=== PATIENT | female | born 1935 ===

== ENCOUNTER 2020-01-28 10:39 | Inpatient (IN) | payer MEDICARE, OTHER, SELFPAY ==
[2020-01-28] VITALS (18 sets, daily range): BP systolic 83–118; BP diastolic 58–72; PULSE 60–87; RESP 13–22; TEMP 36.2–36.8; O2SAT 93–100; BMI 25.6
--- NOTE | 2020-01-28 10:45 | XR_ITS ---
WS: [id number] PORTABLE CHEST HISTORY: hypotension COMPARISON: 04/02/2019 Benign granulomata RIGHT lower lung field. No pneumonia. Normal vasculature. No pleural effusion or p neumothorax. Cardiac size: Normal. Mediastinum/Aorta: Mild atherosclerosis aorta. No osseous abnormality seen. XR/XR chest 1V portable [id number] IMPRESSION: Atherosclerosis aorta and prior granulomatous disease. No acute cardiopulmonary disease.
--- NOTE | 2020-01-28 10:45 | CT_ITS ---
WS: [id number] CT HEAD NONCONTRAST HISTORY: ams TECHNIQUE: Contiguous axial imaging performed through the brain in 2.5 mm imaging. Bone and soft tiss ue windows. Sagittal and coronal reformats reviewed. All CT scans at [facility] use at ast one of these dose optimization techniques: automated exposure control; mA and/or kV adjustment pe r patient size (includes targeted exams where dose is matched to clinical indication); or iterative r econstruction. DLP: 902.85 mGy.cm COMPARISON: 09/17/2015 No acute intracranial hemorrhage, midline shift or mass effect. Moderate atrophy and chronic ischemic disease. Small lacunar infarcts in the basal ganglia. Distribut ion is similar to the prior study. There is cerebellar atrophy. Ventricles: Ventricles and extra-axial spaces are prominent on the basis of atrophy. No inferior displacement of the cerebellar tonsils. Paranasal sinuses: As visualized are clear. Mastoid air cells: Well pneumatized. Calvarium and scalp: Skull is intact with no soft tissue edema or swelling. Advanced atherosclerosis of the intracranial carotid arteries. CT/CT head wo con* [id number] IMPRESSION: 1. No acute intracranial hemorrhage or edema. 2. Cerebral and cerebellar atrophy and chronic ischemic disease stable since 11/20/2014.
--- NOTE | 2020-01-28 10:46 | ECG_ITS ---
Measurements Intervals [place] Rate: 69 P: 40 TN: 149 QRS: -7 QRSD: 90 T: 59 QT: 385 QTc: 414 SINUS RHYTHM Compared to ECG 04/02/2019 15:30:49 Sinus bradycardia no longer present Electronically Signed On 01-28-2020 15:28:51 CDT by Leigh Reynolds M.D. [email or web address]
--- NOTE | 2020-01-28 10:47 | ED_ITS ---
HPI - Weakness General: Chief complaint: Altered Mental Status Stated complaint: ALOC/ HYPOTENSION Time Seen by Provider: 01/28/20 10:44 Source: EMS Mode of arrival: EMS Limitations: altered mental status History of Present Illness: HPI Narrative: 84-year-old female who is here from correction due to increasing altered mental status and a syncopal event today. Patient is currently bedbound and has not been speaking for 2 weeks per EMS and correction. Patient is unable to give any history here. She is on blood pressure medicines at correction but has had hypotension over the last week to 2 weeks. Patient is hypotensive here. She had no fever. Review of Systems General: Reports: ROS unobtainable due to mental status PFSH ED PFSH: Social History Smoking and tobacco status: unknown if ever smoked Physical Exam Const: COMMON NORMALS: no apparent distress and healthy appearing EXAM LIMITATIONS: altered mental status GENERAL APPEARANCE: frail appearing HENMT: COMMON NORMALS: normocephalic and head/scalp atraumatic HEAD & SCALP: normocephalic and atraumatic Eye: COMMON NORMALS: PERRL and EOMs intact bilaterally PUPIL: Yes PERRL Neck/C-Spine: COMMON NORMALS: full ROM and supple Chest: COMMONS NORMALS: inspection of chest normal and palpation of chest normal Resp: COMMON NORMALS: normal respiratory effort, no retractions, no use of accessory muscles and clear to auscultation bilaterally AUSCULTATION: clear to auscultation bilaterally Cardio: COMMON NORMALS: regular rate, regular rhythm and no murmurs RATE: regular rate RHYTHM: regular rhythm GI: COMMON NORMALS: normal to inspection, nondistended, normoactive bowel sounds, soft to palpation, non-tender and no masses PALPATION: Yes soft Extremity: COMMON NORMALS: normal to inspection and full ROM Neuro: OTHER: Patient does not respond to any questions. She does not speak. She is awake. Psych: COMMON NORMALS: negative for mental status grossly normal Skin: COMMON NORMALS: no rashes or lesions noted and no wounds GENERAL SKIN EXAM: no rashes or lesions noted Course Vital Signs: Vital signs: Vital Signs Temperature 97.5 F L 01/28/20 10:40 Pulse Rate 87 01/28/20 12:42 Respiratory Rate 16 01/28/20 12:42 Blood Pressure 107/68 01/28/20 12:42 Pulse Oximetry 97 01/28/20 12:42 MDM - Weakness MDM Narrative: Medical decision making narrative: Patient presents here with altered mental status from correction. Patient appears quite dehydrated with acute kidney injury from dehydration. She also has hyperkalemia I believe is due to her acute kidney injury from dehydration. Her blood pressure here is g reatly improved after IV fluids. Patient does have a cystitis and started on antibiotics. I spoke to hospitalist along with nephrology and will admit to the ICU. Patient given insulin here for her hyperkalemia. Lab Data: Labs: Lab Results 01/28/20 01/28/20 01/28/20 Range/Units 12:00 12:00 12:00 WBC 11.2 H (4.0-10.0) 10^3/ uL RBC 4.02 L (4.1-5.3) 10^6/u L Hgb 11.9 (11.5-15.3) g/dL Hct 39.9 (37.0-47.0) % MCV 99.3 H (81-99) fL MCH 29.6 (28.0-34.0) pg MCHC 29.8 L (30.0-36.0) g/dL RDW 14.3 (12.1-15.1) % Plt Count 161 (130-400) 10^3/c mm MPV 13.0 H (7.4-10.4) fL Neut % (Auto) 83.0 % Lymph % (Auto) 11.5 % [place] % (Auto) 4.6 % Eos % (Auto) 0.1 % Baso % (Auto) 0.3 % Neut # (Auto) 9.3 H (1.8-7.7) 10^3/u L Lymph # (Auto) 1.3 (0.8-4.8) 10^3/u L [place] # (Auto) 0.5 (0.2-0.9) 10^3/u L Eos # (Auto) 0.0 (0.0-0.8) 10^3/u L Baso # (Auto) 0.0 (0.0-0.1) 10^3/u L Nucleated RBC % (a uto) 0 % Nucleated RBCs # 0.0 /100WBC Sodium 148 H (136-145) mmol/L Potassium 6.6 H* (3.5-5.1) mmol/L Chloride 116 H (98-107) mmol/L Carbon Dioxide 18 L (22-29) mmol/L Anion Gap 20.6 H (5-19) BUN 113 H* (8-23) mg/dL Creatinine 5.2 H (0.5-0.9) mg/dL Glucose 114 (65-115) mg/dL Calculated Osmolal ity 309 H (285-295) mOsm/k g Lactate 1.7 (0.5-2.2) mmol/L Calcium 9.3 (8.5-10.5) mg/dL Magnesium (1.7-2.3) mg/dL Total Bilirubin 0.5 (0.15-1.2) mg/dL AST 15 (0-32) U/L ALT 16 (0-33) U/L Alkaline Phosphata se 97 (35-105) IU/L Troponin T Baselin e (0-10) ng/mL Total Protein 7.3 (6.6-8.7) g/dL Albumin 3.5 (3.5-5.2) g/dL Globulin 3.8 (1.3-4.6) g/dL Urine Color (Yellow) Urine Appearance (CLEAR) Urine pH (5-7) Ur Specific Gravit y (1.005-1.030) Urine Protein (Negative) Urine Glucose (UA) (Normal) Urine Ketones (Negative) Urine Blood (Negative) Urine Nitrate (Negative) Urine Bilirubin (NEGATIVE) Prot Sulfosalicyli c Acd (Negative) Urine Urobilinogen (Negative) mg/dL Ur Leukocyte Haven ase (Negative) Urine RBC (0-2) /hpf Urine WBC (0-5) /hpf Ur Squamous Epith Cells (0-5) Urine Bacteria (NONE) 01/28/20 01/28/20 01/28/20 Range/Units 12:00 12:00 12:08 WBC (4.0-10.0) 10^3/ uL RBC (4.1-5.3) 10^6/u L Hgb (11.5-15.3) g/dL Hct (37.0-47.0) % MCV (81-99) fL MCH (28.0-34.0) pg MCHC (30.0-36.0) g/dL RDW (12.1-15.1) % Plt Count (130-400) 10^3/c mm MPV (7.4-10.4) fL Neut % (Auto) % Lymph % (Auto) % Sew[place] % (Auto) % Eos % (Auto) % Baso % (Auto) % Neut # (Auto) (1.8-7.7) 10^3/u L Lymph # (Auto) (0.8-4.8) 10^3/u L [place] # (Auto) (0.2-0.9) 10^3/u L Eos # (Auto) (0.0-0.8) 10^3/u L Baso # (Auto) (0.0-0.1) 10^3/u L Nucleated RBC % (a uto) % Nucleated RBCs # /100WBC Sodium (136-145) mmol/L Potassium (3.5-5.1) mmol/L Chloride (98-107) mmol/L Carbon Dioxide (22-29) mmol/L Anion Gap (5-19) BUN (8-23) mg/dL Creatinine (0.5-0.9) mg/dL Glucose (65-115) mg/dL Calculated Osmolal ity (285-295) mOsm/k g Lactate (0.5-2.2) mmol/L Calcium (8.5-10.5) mg/dL Magnesium 2.7 H (1.7-2.3) mg/dL Total Bilirubin (0.15-1.2) mg/dL AST (0-32) U/L ALT (0-33) U/L Alkaline Phosphata se (35-105) IU/L Troponin T Baselin e 212 H* (0-10) ng/mL Total Protein (6.6-8.7) g/dL Albumin (3.5-5.2) g/dL Globulin (1.3-4.6) g/dL Urine Color Yellow (Yellow) Urine Appearance Turbid (CLEAR) Urine pH 8 H (5-7) Ur Specific Gravit y 1.010 (1.005-1.030) Urine Protein 3+ H (Negative) Urine Glucose (UA) Norm (Normal) Urine Ketones 1+ H (Negative) Urine Blood 3+ H (Negative) Urine Nitrate Negative (Negative) Urine Bilirubin Neg (NEGATIVE) Prot Sulfosalicyli c Acd Positive (Negative) Urine Urobilinogen Norm (Negative) mg/dL Ur Leukocyte Haven ase 2+ H (Negative) Urine RBC 5-10 H (0-2) /hpf Urine WBC Too numerous to c nt H (0-5) /hpf Ur Squamous Epith Cells 0-4 H (0-5) Urine Bacteria 4+ H (NONE) Imaging Data^: CT Head: Attestation: I personally reviewed and interpreted this imaging study as follows: Radiologist's impression: [address] [place] [address] CT Scan Report Signed Patient: Blanca Waddell Unit #: [id number] : [id number] Age/Sex: 84 / F ADM Date: 01/28/20 Loc: ER Room/Bed: Attending Dr: Ordering Provider/Ordering MD: Jamison Quan MD Date of Service: 01/28/20 Procedure(s): CT head wo con* [id number] Accession Number(s): [id number] Report Number: [id number] WS: [id number] CT HEAD NONCONTRAST HISTORY: ams TECHNIQUE: Contiguous axial imaging performed through the brain in 2.5 mm imaging. Bone and soft tissue windows. Sagittal and coronal reformats reviewed. All CT scans at [facility] use at least one of these dose optimization techniques: automated exposure control; mA and/or kV adjustment per patient size (includes targeted exams where dose is matched to clinical indication); or iterative reconstruction. DLP: 902.85 mGy.cm COMPARISON: 09/17/2015 No acute intracranial hemorrhage, midline shift or mass effect. Moderate atrophy and chronic ischemic disease. Small lacunar infarcts in the basal ganglia. Distribution is similar to the prior study. There is cerebellar atrophy. Ventricles: Ventricles and extra-axial spaces are prominent on the basis of atrophy. No inferior displacement of the cerebellar tonsils. Paranasal sinuses: As visualized are clear. Mastoid air cells: Well pneumatized. Calvarium and scalp: Skull is intact with no soft tissue edema or swelling. Advanced atherosclerosis of the intracranial carotid arteries. CT/CT head wo con* [id number] IMPRESSION: 1. No acute intracranial hemorrhage or edema. 2. Cerebral and cerebellar atrophy and chronic ischemic disease stable since 09/19/2015. CXR: Radiologist's impression: [facility] [address] [place] [address] XRay Report Signed Patient: Blanca Waddell Unit #: [id number] : 1935 Age/Sex: 84 / F ADM Date: 01/28/20 Loc: ER Room/Bed: Attending Dr: Ordering Provider/Ordering MD: Jamison Quan MD Date of Service: 01/28/20 Procedure(s): XR chest 1V portable [id number] Accession Number(s): [id number] Report Number: [id number] WS: [id number] PORTABLE CHEST HISTORY: hypotension COMPARISON: 04/02/2019 Benign granulomata RIGHT lower lung field. No pneumonia. Normal vasculature. No pleural effusion or pneumothorax. Cardiac size: Normal. Mediastinum/Aorta: Mild atherosclerosis aorta. No osseous abnormality seen. XR/XR chest 1V portable [id number] IMPRESSION: Atherosclerosis aorta and prior granulomatous disease. No acute cardiopulmonary disease. EKG Data^: EKG 1: Attestation: I personally reviewed and interpreted this EKG as follows: EKG interpretation date: 01/28/20 EKG interpretation time: 11:01 Interpretation: nsr hr [address] abnormalities, peaked t waves, qrs 90 qtc 404 Critical Care Time Critical Care Time: Critical Care Time: Yes Total Critical Care Time: 36 Attestation: This case had a high probability of a clinically significant, sudden, or life threatening deterioration of this patient's condition which required my full and direct attention, intervention and personal management. Discharge Plan Discharge Patient Disposition: Admitted As Inpatient Admit Provider: Serafin Rapp Clinical Impression: Acute kidney injury, Acute hyperkalemia Altered mental status Qualifiers: Altered mental status type: unspecified Qualified Code(s): R41.82 - Altered mental status, unspecified Acute cystitis Qualifiers: Hematuria presence: without hematuria Qualified Code(s): N30.00 - Acute cystitis without hematuria Condition: Stable Coding Level of Care Code ED Senior Ui Ux Designer for Chg Fwd Exam Comprehensive
[2020-01-28] MEDS: sodium chloride 0.9% 1,000 ML 999 ML IV ×2 (11:10→12:11)
[2020-01-28 12:28] LABS: Bilirubin Urine Neg (NEGATIVE); Blood Urine 3+ (Negative); Glucose Urine UA Norm (Normal); Ketones Urine 1+ (Negative); Nitrate Urine Negative (Negative); Protein Urine 3+ (Negative); Sulfosalicylic Acid Urine Positive (Negative); Urine Appearance Turbid (CLEAR); Urine Color Yellow (Yellow); pH Urine 8 (5-7)
[2020-01-28 12:29] LABS: Add Urine Culture? Yes; Add Urine Microscopic? YES; Bacteria Urine 4+; Leukocyte Esterase Urine 2+ (Negative); Squamous Epithelial Cell Urine 0-4 (0-5); Urobilinogen Urine Norm (Negative); WBC Urine TOO NUMEROUS TO CNT /hpf (0-5)
[2020-01-28 12:32] LABS: Basophils % 0.3 %; Eosinophils % 0.1 %; Hematocrit 39.9 % (37.0-47.0); Hemoglobin 11.9 g/dL (11.5-15.3); Lymphocytes # 1.3 10^3/uL (0.8-4.8); Lymphocytes % 11.5 %; Mean Corpuscular HGB Conc 29.8 g/dL (30.0-36.0); Mean Corpuscular Hemoglobin 29.6 pg (28.0-34.0); Mean Corpuscular Volume 99.3 fL (81-99); Monocytes # 0.5 10^3/uL (0.2-0.9); Monocytes % 4.6 %; Neutrophils # 9.3 10^3/uL (1.8-7.7); Nucleated Red Blood Cells % 0 %; Platelet Count 161 10^3/cmm (130-400); Red Blood Count 4.02 10^6/uL (4.1-5.3); Red Cell Distribution Width 14.3 % (12.1-15.1); White Blood Count 11.2 10^3/uL (4.0-10.0)
[2020-01-28 12:51] LABS: Lactate (Lactic Acid level) 1.7 mmol/L (0.5-2.2)
[2020-01-28] MEDS: cefTRIAXone 1,000 MG in sodium chloride 0.9% (plus) 50 ML 100 MG IV (12:51)
[2020-01-28 12:52] LABS: Alanine Aminotransferase 16 U/L (0-33); Albumin Level 3.5 g/dL (3.5-5.2); Alkaline Phosphatase 97 IU/L (35-105); Anion Gap 20.6 (5-19); Aspartate Amino Transferase 15 U/L (0-32); Calcium 9.3 mg/dL (8.5-10.5); Carbon Dioxide 18 mmol/L (22-29); Chloride 116 mmol/L (98-107); Globulin 3.8 g/dL (1.3-4.6); Glucose 114 mg/dL (65-115); Sodium 148 mmol/L (136-145); Total Bilirubin 0.5 mg/dL (0.15-1.2); Total Protein 7.3 g/dL (6.6-8.7)
[2020-01-28 13:15] LABS: Blood Urea Nitrogen 113 mg/dL (8-23); Osmolality Calculated 309 mOsm/kg (285-295); Potassium 6.6 mmol/L (3.5-5.1)
[2020-01-28 13:16] LABS: Troponin(5th) Baseline 212 ng/mL (0-10)
[2020-01-28] MEDS: dextrose 50% syringe 50 mL IVP (13:32)
[2020-01-28] MEDS: insulin regular-human 100 units/1 mL 10 UNIT IVP (13:33)
[2020-01-28 13:41] LABS: Magnesium 2.7 mg/dL (1.7-2.3)
[2020-01-28 15:03] LABS: Troponin 5 2HR 188.5 ng/mL (0-10); Troponin 5 2HR Delta -23.5 ABS# (0-10)
--- NOTE | 2020-01-28 15:31 | PM.HP ---
Providers/Chief Complaint Admitting Physician: Serafin Rapp Primary Care Provider: South Arizmendi MD Chief Complaint: SHAJI,HYPERKALEMIA History of Present Illness Blanca Waddell is a 84 year old lady, correction resident due to functional decline and inability of her and her daughter to take care of her at home, with history of CAD, CKD, HTN, recurrent UTI, dementia, recently with worsening functional capacity was brought to ER for evaluation after recent very significant decline in oral intake, participation in activities and social interaction, and recently with worsening generalized weakness, and a noted syncopal event today. In ER she is noted hypotensive, with urinary tract infection, severe acute kidney injury with hyperkalemia: Noted dehydrated, with generalized weakness. During my evaluation she is very weak, although is alert, and answering some basic questions. She is not sure where she is stating that she thinks she may be in [place]. She states the year as 2001. She denies any pain. She is fatigued and generally weak. She denies any chest pain or pressure. She is not short of breath. She cannot give more of a review of systems or history. I have also spoken with the correction staff and her family. It appears that recently after losing her [id number]-gcl she had quite significantly deteriorated in terms of her functional capacity. Worse previously she used to walk around and would feed herself, would recognize her family, recently she has become withdrawn, not eating or drinking unless through significant encouragement, and even then only small amounts, and has been interacting less, and appears possibly not able to recognize her family. I was only able to speak with her daughter and son-in-law, although her is reportedly making decisions on her behalf. His son in law is getting out to the farm to try to get him so we can discuss her condition and treatment plan as well as goals of care. Daughter and son-in-law are unaware that CODE STATUS recently has been changed to no resuscitation at correction. They are very concerned about continuing her medications, although after a lengthy discussion do understand that in her current hypotensive state a number of her cardiac medications need to be held. On her 's return he confirms that at SNF code status was changed to DNR in case of cardiopulmonary arrest. He states they did not realize how much she has recently declined. He prefers this code status to continue here. Review of Systems General: Reports: other (Recent functional decline, poor appetite, poor intake of food and drink. Generalized weakness. She herself is weak, but denies pain. Denies shortness of breath. Denies chest pain or pressure. Denies nausea or abdominal discomfort. States she is not hungry. Cannot give more all review of systems than that.) Medications/Allergies Home Medications Medication Instructions Recorded Confirmed Last Taken Type aspirin 81 mg tablet,delayed 81 mg PO DAILY 01/21/20 01/28/20 01/28/20 08:00 History release diclofenac sodium 75 mg 75 mg PO BID 01/21/20 01/28/20 01/28/20 08:00 History tablet,delayed release donepezil 5 mg tablet 5 mg PO BID tab 01/21/20 01/28/20 01/28/20 08:00 History lisinopril 10 mg tablet 10 mg PO BEDTIME tab 01/21/20 01/28/20 Unknown History methenamine hippurate 1 gram tablet 1 gm PO BID 01/21/20 01/28/20 01/28/20 08:00 History misoprostol 200 mcg tablet 200 mcg PO BID tab 01/21/20 01/28/20 01/28/20 History nifedipine 30 mg tablet,extended 30 mg PO DAILY 01/21/20 01/28/20 Unknown History release omeprazole 20 mg capsule,delayed 20 mg PO QAM 01/21/20 01/28/20 Unknown History release simvastatin 40 mg tablet 40 mg PO BEDTIME 01/21/20 01/28/20 Unknown History citalopram 20 mg tablet 20 mg PO DAILY #60 tab 01/25/20 01/28/20 01/28/20 08:00 Rx isosorbide mononitrate 30 mg 30 mg PO BID #60 tab 01/25/20 01/28/20 01/28/20 08:00 Rx tablet,extended release 24 hr nitrofurantoin monohyd/m-cryst 100 mg PO DAILY 01/28/20 01/28/20 01/28/20 08:00 History [Macrobid] sod.chlorid-potassium chloride 1 tab PO TID 01/28/20 01/28/20 01/28/20 08:00 History [Thermotabs] Allergies Allergy/AdvReac Type Severity Reaction Status Date / Time Sulfa (Sulfonamide Allergy Unknown Verified 01/26/20 15:39 Antibiotics) PFSH Acute PFSH: Medical History Anemia Blindness of left eye CAD (coronary artery disease) Cystitis Dementia GERD (gastroesophageal reflux disease) HTN (hypertension) Hyperlipidemia Thoracic aortic aneurysm Surgical History H/O section History of bladder surgery History of cataract surgery Family History (Updated 01/28/20 @ 17:06 by Serafin Rapp MD) Father Stroke Alzheimer's disease Social History Smoking and tobacco status: never smoked Alcohol intake: never Substance/Drug Use: never Marital status: Current occupational status: retired Vitals/I&O/Wt Last Vital Signs Temp 97.1 F L 01/28/20 15:00 Pulse 63 01/28/20 15:00 Resp 18 01/28/20 15:00 BP 98/58 01/28/20 15:00 Pulse Ox 94 01/28/20 14:31 01/28/20 01/28/20 01/28/20 06:59 14:59 22:59 Intake Total 2109 Balance 2109 Weight last 48 hrs Weight 72.03 kg Physical Exam Const: COMMON NORMALS: no apparent distress; negative for oriented x3 GENERAL APPEARANCE: frail appearing OTHER: Very weak HENMT: COMMON NORMALS: oropharynx normal Neck/C-Spine: COMMON NORMALS: no JVD Resp: COMMON NORMALS: normal respiratory effort and clear to auscultation bilaterally AUSCULTATION: clear to auscultation bilaterally Cardio: COMMON NORMALS: no JVD, regular rhythm, S1 normal heart sound, S2 normal heart sound and no murmurs RHYTHM: regular rhythm HEART SOUNDS: S1 normal and S2 normal GI: COMMON NORMALS: normal to inspection, nondistended, normoactive bowel sounds, soft to palpation and non-tender PALPATION: Yes soft Extremity: COMMON NORMALS: no joint enlargement and no pedal edema Neuro: COMMON NORMALS: oriented x3 and moves all extremities Skin: COMMON NORMALS: no rashes or lesions noted GENERAL SKIN EXAM: no rashes or lesions noted Urinary Catheter Management^: Lamb: Cath Placed During This Visit: yes Reason for Continuing Indwelling Catheter: Accurate Measurement of Urinary Output in Critically Ill Patients Urinary Catheter Date of Insertion: 01/28/20 Urinary Catheter Time of Insertion: 12:41 Data : 01/28/20 12:00 01/28/20 12:00 Micro: Microbiology 01/28/20 14:09 Blood Culture - Preliminary Blood SPECIMEN COLLECTED 01/28/20 12:00 Blood Culture - Preliminary Blood SPECIMEN COLLECTED A&P Assessment and plan (1) Acute kidney injury: Creatinine up to 5.2, baseline is around 1.3-1.5. SHAJI superimposed on chronic kidney disease. Complicated by hyperkalemia, potassium 6.6, with peaked T waves. Fluid challenge. Reassess response, urine output. Treat hyperkalemia. Check CK. Renal ultrasound. Hold her blood pressure medications. Maintain mean arterial pressure. Discontinue NSAIDs. Appreciate nephrology input. Status: Acute (2) Acute hyperkalemia: Received calcium gluconate, dextrose and insulin. Kayexalate. Appreciate nephrology recommendations. Recheck level. Discussed with family that in some cases in case of worsening renal function, hyperkalemia, hemodialysis may be considered, although this would not be ideal choice first due to concurrent hypotension, and also due to her overall functional status and quality of life. Timing of dialysis if it were needed would be difficult to predict, temporary versus more long-term. Day confirmed understanding, will take some time to discuss to help decide in case this were required. Status: Acute (3) Hypotension: This is suspected hypovolemic, in combination with antihypertensives and cardiac medications. Cannot entirely exclude septic shock, although does not fit sepsis criteria. Had some response to volume challenge. Repeating bolus 500 mL 0.45 saline. Repeat again if needed. Please discuss any changes in condition with family. In case of change in goals of care to end-of-life, they would like to come see her in the hospital. Status: Acute (4) Acute cystitis: Complicated urinary tract infection, with history of very resistant infections. Received Rocephin in ER. I see back in August had E. coli resistant to cephalosporins as well as other antibiotics. We will switch antibiotic to Primaxin instead at this time. Follow urine culture. Monitor blood pressure. He does not strictly fit sepsis criteria as she is afebrile, without tachycardia or other signs of sepsis. Her hypotension may be secondary to hypovolemia, although cannot entirely exclude septic shock. Lactic acid is 1.7. Blood culture had been ordered. Status: Acute Qualifiers: Hematuria presence: without hematuria Qualified Code(s): N30.00 - Acute cystitis without hematuria (5) Altered mental status: Recently progressive dementia, decline in motivation, functional capacity. Decline in overall nutrition and hydration. She has been significantly less active not participating in activities over the last weeks, less communicative. It appears has had progression of dementia after the of [id number]-gol. Discussed with family overall her prognosis while guarded at this time, long-term he is rather not good given chronic comorbidities with CAD, CKD, among others, as well as recent progression of dementia and decline in functional capacity. They verbalized understanding and agreement. Status: Acute Qualifiers: Altered mental status type: unspecified Qualified Code(s): R41.82 - Altered mental status, unspecified (6) Dementia: Recently progressing. Status: Acute (7) CAD (coronary artery disease): With chronically occluded RCA reported per family. Follows with Dr. Navarro in [place]. Continue aspirin, statin. Family understand that with hypotension medications which are affecting her blood pressure may likely worsen her condition. Are agreeable to hold them. Status: Acute (8) Syncope due to orthostatic hypotension: Status: Acute (9) Troponin level elevated: She denies current chest pain. Does have history of coronary disease with chronic occlusion of RCA per family, although with some collaterals. Given she is asymptomatic, without significant changes on EKG, troponin ovation is suspected likely secondary to mismatch and demand supply secondary to acute infection, hypotension and kidney injury. Continue to monitor for symptoms. Complete troponin and EKG trend. Continue her cardiac medications with aspirin, statin. Status: Acute Attestations Medical Necessity Statement*: Admission of over 2 midnights is going to be needed for assessment and management of acute kidney injury, hyperkalemia, urinary tract infection, hypovolemia and hypotension in the setting of coronary disease chronic kidney disease and dementia. Critical Care Time: In addition to noncritical issues 25 minutes critical care time spent on assessment of hemodynamic status, hypotension, severe acute kidney injury, hyperkalemia with EKG changes, complicated urinary tract infection with history of resistant infections, hypotension, hypovolemia, troponin abnormality in the setting of chronic kidney disease and coronary disease. Coding Level of Care Code Acute [employer]ominium [employer] Manager for g Fwd Diagnoses Acute kidney injury N17.9 Acute hyperkalemia E87.5 Hypotension I95.9 Acute cystitis N30.00 Hematuria presence: without hematuria Altered mental status R41.82 Altered mental status type: unspecified Dementia F03.90 CAD (coronary artery disease) I25.10 Syncope due to orthostatic hypotension I95.1 Troponin level elevated R79.89
[2020-01-28] MEDS: sodium chloride 0.9% 1,000 ML 100 ML IV (16:06)
[2020-01-28] MEDS: sodium polystyrene sulfonate 15 gm/60 mL Btl PO (16:08)
--- NOTE | 2020-01-28 16:46 | ECG_ITS ---
Measurements Intervals [place] Rate: 65 P: 59 SC: 162 QRS: 2 QRSD: 93 T: 62 QT: 414 QTc: 432 SINUS RHYTHM LOW QRS VOLTAGE IN PRECORDIAL LEADS [QRS DEFLECTION < 1.0 mV IN CHEST LEADS] Compared to ECG 04/02/2019 15:30:49 Low QRS voltage now present Sinus bradycardia no longer present Electronically Signed On 01-28-2020 15:45:59 CDT by Leigh Reynolds M.D. [email or web address]
--- NOTE | 2020-01-28 16:47 | P.CONIM_ITS ---
Providers/Reason For Consult Consulting Physican/Specialty*: Nephrology Reason for Consult*: Acute kidney failure and hyperkalemia Attending Physician: Serafin Rapp Primary Care Provider: [place] MD History of Present Illness History of Present Illness Blanca Waddell is a 84 year old female brought in from [place] with increasing AMS, poor oral intake. She was found to have turbid urine, with pyuria, bactiuria, with SHAJI on labs with a creatinine of 5.2 and K of 6.6. Some subtle EKG changes and she received the hyperK cocktail in the ER with 2L of NS. UO is starting to filler picker. Lamb cath was placed. No known history of SHAJI and old labs show baseline creatinine of 1.5mg./dL in March of last year. On her med chart I see NSAIDs (Diclofenac) and Lisinopril. It also appears that she is being treated with MAcrobid for a UTI. She is minimally verbal at this time. There are no apparent fevers/chills/ SOB/ cough etc. She has no edema and no other features of hypervolemia. Her Bp was initially low when she came in with a sBp in the 80s, improving to 100-110 after ivf boluses. Review of Systems Const: Reports: change in appetite Eyes: Denies: change in vision or blurry vision ENMT: Denies: throat pain Card: Denies: chest pain, palpitations or shortness of breath on exertion Resp: Denies: shortness of breath or productive cough GI: Reports: other (unable to answer ) Meds/Allergies Home Medications and Allergies Home Medications Medication Instructions Recorded Confirmed Last Taken Type aspirin 81 mg tablet,delayed 81 mg PO DAILY 01/21/20 01/28/20 01/28/20 08:00 History release diclofenac sodium 75 mg 75 mg PO BID 01/21/20 01/28/20 01/28/20 08:00 History tablet,delayed release donepezil 5 mg tablet 5 mg PO BID tab 01/21/20 01/28/20 01/28/20 08:00 History lisinopril 10 mg tablet 10 mg PO BEDTIME tab 01/21/20 01/28/20 Unknown History methenamine hippurate 1 gram tablet 1 gm PO BID 01/21/20 01/28/20 01/28/20 08:00 History misoprostol 200 mcg tablet 200 mcg PO BID tab 01/21/20 01/28/20 01/28/20 History nifedipine 30 mg tablet,extended 30 mg PO DAILY 01/21/20 01/28/20 Unknown History release omeprazole 20 mg capsule,delayed 20 mg PO QAM 01/21/20 01/28/20 Unknown History release simvastatin 40 mg tablet 40 mg PO BEDTIME 01/21/20 01/28/20 Unknown History citalopram 20 mg tablet 20 mg PO DAILY #60 tab 01/25/20 01/28/20 01/28/20 08:00 Rx isosorbide mononitrate 30 mg 30 mg PO BID #60 tab 01/25/20 01/28/20 01/28/20 08:00 Rx tablet,extended release 24 hr nitrofurantoin monohyd/m-cryst 100 mg PO DAILY 01/28/20 01/28/20 01/28/20 08:00 History [Macrobid] sod.chlorid-potassium chloride 1 tab PO TID 01/28/20 01/28/20 01/28/20 08:00 History [Thermotabs] Allergies Allergy/AdvReac Type Severity Reaction Status Date / Time Sulfa (Sulfonamide Allergy Unknown Verified 01/26/20 15:39 Antibiotics) Current Medications Current Medications Generic Name Dose Route Start Last Admin Trade Name Freq PRN Reason Stop Dose Admin Sodium Chloride 1,000 mls @ 100 mls/hr 01/28/20 16:00 01/28/20 16:06 Sodium Chloride 0.9% IV 100 mls/hr .Q10H JOSEMANUEL Administration PFSH Acute PFSH: Social History Smoking and tobacco status: unknown if ever smoked Vitals/I&O/Wt Last Vital Signs Temp 97.1 F L 01/28/20 15:00 Pulse 63 01/28/20 15:00 Resp 18 01/28/20 15:00 BP 98/58 01/28/20 15:00 Pulse Ox 94 01/28/20 14:31 01/28/20 01/28/20 01/28/20 06:59 14:59 22:59 Intake Total 2109 / 2109 Balance 2109 Weight last 48 hrs Weight 72.03 kg Physical Exam Const: EXAM LIMITATIONS: altered mental status NUTRITIONAL APPEARANCE: underweight ORIENTATION/CONSCIOUSNESS: Yes confused HENMT: COMMON NORMALS: normocephalic HEAD & SCALP: normocephalic Eye: COMMON NORMALS: PERRL and EOMs intact bilaterally PUPIL: Yes PERRL Neck/C-Spine: COMMON NORMALS: no JVD Lymph: LYMPHATIC: no lymphadenopathy noted and no lymphedema noted Chest: COMMONS NORMALS: inspection of chest normal and palpation of chest normal Resp: COMMON NORMALS: normal respiratory effort and no retractions Cardio: COMMON NORMALS: no JVD, regular rate, regular rhythm, S1 normal heart sound and S2 normal heart sound RATE: regular rate RHYTHM: regular rhythm HEART SOUNDS: S1 normal and S2 normal GI: COMMON NORMALS: normal to inspection, nondistended, normoactive bowel sounds Neuro: PEDRO COMA SCALE: other (very confused, unable to converse ) COMMON NORMALS: no focal motor deficits Urinary Catheter Management^: Lamb: Cath Placed During This Visit: yes Reason for Continuing Indwelling Catheter: Accurate Measurement of Urinary Output in Critically Ill Patients Urinary Catheter Date of Insertion: 01/28/20 Urinary Catheter Time of Insertion: 12:41 Data Micro: Micro: Microbiology 01/28/20 14:09 Blood Culture - Pr eliminary Blood SPECIMEN [facility] 01/28/20 12:00 Blood Culture - Pr eliminary Blood SPECIMEN [facility] A&P Additional A&P Information 1. SHAJI - consistent with severe pre-renal azotemia, characterized by clinical hypovolemia, high BUN:creatinine ratio. It is possible ATN has occurred given her profound intravascular volume depletion. Furthermore, she has been exposed to both NSAIDs restricting glomerular inflow and ACEi, dumping glomerular pressure further. - stat repeat BMP - will continue NS at 100ml/hr - will get urine studies for FE Na and FE urea - CPK, TSH - of K continues to increase then dialysis will become a real consideration - avoid the usuals - dose meds for eGFR < 15 2. Confusion - likely metabolic encephalopathy from severe volume depletion and UTI 3. UTI - urine and blood cultures; on Imipenem and has received Rocephin - thanks will follow closely - interview and exam performed via telemed with the aid of the bedside RN Yasir Collins MD [facility] [phone] Consult Attestations Medical Necessity Statement: eval for SHAJI and hyperK Coding Level of Care Code Acute Kiln Car Unloader for Chg Fwd
[2020-01-28 17:48] LABS: Anion Gap 19.5 (5-19); Calcium 8.9 mg/dL (8.5-10.5); Carbon Dioxide 13 mmol/L (22-29); Chloride 118 mmol/L (98-107); Creatine Phosphokinase 95 U/L (26-192); Glucose 91 mg/dL (65-115); Osmolality Calculated 301 mOsm/kg (285-295); Potassium 5.5 mmol/L (3.5-5.1); Sodium 145 mmol/L (136-145)
[2020-01-28 18:33] LABS: Blood Urea Nitrogen 100 mg/dL (8-23)
[2020-01-28] MEDS: heparin 5,000 unit/mL INJ 1 mL 5000 UNIT SUBCUT (18:49)
[2020-01-28] MEDS: atorvastatin 40 mg Tablet 20 MG PO (22:01)
[2020-01-29] VITALS (10 sets, daily range): BP systolic 94–152; BP diastolic 58–91; PULSE 65–72; RESP 13–19; TEMP 36.2–37.2; O2SAT 94–99; BMI 24.1
[2020-01-29 02:49] LABS: Urine Random Sodium 53 mmol/L
[2020-01-29 03:06] LABS: Urea Nitrogen,Urine Random 580 mg/dL
[2020-01-29] MEDS: heparin 5,000 unit/mL INJ 1 mL 5000 UNIT SUBCUT ×3 (03:56→16:08)
[2020-01-29] MEDS: sodium chloride 0.9% 1,000 ML 100 ML IV (03:56)
[2020-01-29 05:24] LABS: Basophils % 0.4 %; Eosinophils # 0.2 10^3/uL (0.0-0.8); Eosinophils % 2.6 %; Hematocrit 35.2 % (37.0-47.0); Hemoglobin 10.1 g/dL (11.5-15.3); Lymphocytes # 1.2 10^3/uL (0.8-4.8); Lymphocytes % 14.3 %; Mean Corpuscular HGB Conc 28.7 g/dL (30.0-36.0); Mean Corpuscular Hemoglobin 29.1 pg (28.0-34.0); Mean Corpuscular Volume 101.4 fL (81-99); Mean Platelet Volume 12.9 fL (7.4-10.4); Monocytes # 0.4 10^3/uL (0.2-0.9); Monocytes % 4.9 %; Neutrophils # 6.6 10^3/uL (1.8-7.7); Neutrophils % 77.3 %; Nucleated Red Blood Cells % 0 %; Platelet Count 128 10^3/cmm (130-400); Red Blood Count 3.47 10^6/uL (4.1-5.3); Red Cell Distribution Width 14.2 % (12.1-15.1); White Blood Count 8.5 10^3/uL (4.0-10.0)
[2020-01-29 05:48] LABS: Alanine Aminotransferase 14 U/L (0-33); Albumin Level 2.9 g/dL (3.5-5.2); Alkaline Phosphatase 90 IU/L (35-105); Anion Gap 16.8 (5-19); Aspartate Amino Transferase 15 U/L (0-32); Calcium 8.9 mg/dL (8.5-10.5); Carbon Dioxide 16 mmol/L (22-29); Chloride 125 mmol/L (98-107); Globulin 3.3 g/dL (1.3-4.6); Glucose 94 mg/dL (65-115); Osmolality Calculated 316 mOsm/kg (285-295); Potassium 4.8 mmol/L (3.5-5.1); Sodium 153 mmol/L (136-145); Total Bilirubin 0.4 mg/dL (0.15-1.2); Total Protein 6.2 g/dL (6.6-8.7)
[2020-01-29 05:58] LABS: Blood Urea Nitrogen 82 mg/dL (8-23)
--- NOTE | 2020-01-29 08:01 | PC.NURSE ---
pt daughter called wanting an update. Pt is able to verbalize her needs at this time. drinking water well.
[2020-01-29] MEDS: aspirin 325 mg Tablet PO (08:33)
[2020-01-29] MEDS: pantoprazole DR 40 mg Tablet PO (08:33)
[2020-01-29] MEDS: dextrose 5% 1,000 ML 30 ML IV (08:33)
[2020-01-29 08:59] LABS: Ferritin 223 ng/mL (15-150); Iron 57 ug/dL (37-145); Percent Saturation 34.7 % (20-50); Total Iron Binding Capacity 164 mcg/dl; Unsaturated Iron Binding 107 ug/dL (112-347)
[2020-01-29 09:14] LABS: Folate Level 7.2 ng/mL (4.8-37.3); Vitamin B12 819 pg/mL (232-1245)
--- NOTE | 2020-01-29 10:07 | PM.PN ---
Subjective Subjective: Interval history: A little more awake today but remains demented. No discomfort that is obvious. Ivf switched to D5w. No SOB. Good urine output. Vitals/I&O/Wt Last Vital Signs Temp 98.1 F 01/29/20 08:00 Pulse 66 01/29/20 06:00 Resp 19 H 01/29/20 06:00 BP 130/71 01/29/20 06:00 Pulse Ox 97 01/29/20 06:00 01/28/20 01/29/20 01/29/20 22:59 06:59 14:59 Intake Total 300 / 2410 1000 / 3410 115 / 115 Output Total 625 / 625 400 / 1025 350 / 350 Balance -325 / 1785 600 / 2385 -235 / -235 Weight last 48 hrs Weight 67.812 kg Weight 72.03 kg Physical Exam Const: EXAM LIMITATIONS: altered mental status NUTRITIONAL APPEARANCE: underweight ORIENTATION/CONSCIOUSNESS: Yes confused HENMT: COMMON NORMALS: normocephalic HEAD & SCALP: normocephalic Eye: COMMON NORMALS: PERRL and EOMs intact bilaterally PUPIL: Yes PERRL Neck/C-Spine: COMMON NORMALS: no JVD Lymph: LYMPHATIC: no lymphadenopathy noted and no lymphedema noted Chest: COMMONS NORMALS: inspection of chest normal and palpation of chest normal Resp: COMMON NORMALS: normal respiratory effort and no retractions Cardio: COMMON NORMALS: no JVD, regular rate, regular rhythm, S1 normal heart sound and S2 normal heart sound RATE: regular rate RHYTHM: regular rhythm HEART SOUNDS: S1 normal and S2 normal GI: COMMON NORMALS: normal to inspection, nondistended, normoactive bowel sounds Neuro: PEDRO COMA SCALE: other (very confused, unable to converse ) COMMON NORMALS: no focal motor deficits Urinary Catheter Management^: Lamb: Cath Placed During This Visit: yes Reason for Continuing Indwelling Catheter: Accurate Measurement of Urinary Output in Critically Ill Patients Urinary Catheter Date of Insertion: 01/28/20 Urinary Catheter Time of Insertion: 12:41 Data : 01/29/20 04:34 01/29/20 04:34 Micro: Microbiology 01/28/20 14:09 Blood Culture - Preliminary Blood SPECIMEN COLLECTED 01/28/20 12:00 Blood Culture - Preliminary Blood SPECIMEN COLLECTED A&P Additional A&P Information 1. SHAJI - consistent with severe pre-renal azotemia, characterized by clinical hypovolemia, high BUN:creatinine ratio. It is possible ATN has occurred given her profound intravascular volume depletion. Furthermore, she has been exposed to both NSAIDs restricting glomerular inflow and ACEi, dumping glomerular pressure further. - Creatinine coming down nicely - renal us with right hydro and mild left hydro; will get a CT A/P without contrast - avoid the usuals - dose meds for eGFR < 15 2. Confusion - likely metabolic encephalopathy from severe volume depletion and UTI; improving to baseline dementia 3. UTI - urine and blood cultures; on Imipenem and has received Rocephin - DNR and limited code status. I think it is worth performing a CT A/P for informative diagnostic reasons but it is unlikely she will benefit from invasive procedures - thanks will follow closely - interview and exam performed via telemed with the aid of the bedside RN Yasir Collins MD [facility] [phone] Attestations Medical Necessity Statement*: eval of SHAJI Coding Level of Care Code Acute Central Supply Manager for Rodneyg Kt
--- NOTE | 2020-01-29 10:10 | CTR_ITS ---
PROCEDURE INFORMATION: Exam: CT Abdomen And Pelvis Without Contrast Exam date and time: 01/29/2020 10:22 AM Age: 84 years old Clinical indication: Other: Bilateral hydronephrosis TECHNIQUE: Imaging protocol: Computed tomography of the abdomen and pelvis without contrast. Radiation optimization: All CT scans at this facility use at least one of these dose optimization techniques: automated exposure control; mA and/or kV adjustment per patient size (includes targeted exams where dose is matched to clinical indication); or iterative reconstruction. COMPARISON: CT abdomen pelvis con [id number] 04/09/2015 12:02 PM RADIATION DOSE METRICS: Total DLP: 963.58 mGy-cm FINDINGS: Detailed evaluation of the abdominal and pelvic viscera is somewhat limited in the absence of intravenous contrast. Inferior thorax: Interstitial prominence, chronic granulomatous disease, mild airspace disease, and trace pleural effusion. Enlargement of the ascending thoracic aorta measuring 4.7 cm in diameter. Coronary artery calcification. Liver: No focal hepatic mass. Gallbladder and bile ducts: Questionable cholelithiasis. No biliary ductal dilatation. Pancreas: Pancreatic calcification, without ductal dilatation. Spleen: Splenic granulomata. Adrenals: Unremarkable adrenals. Kidneys and ureters: Subcentimeter bilateral renal calculi, including a 5 mm right renal calculus. Additional 4 mm calculus in the dilated left extrarenal pelvis. Bilateral hydronephrosis, right greater than left. Lobulated renal morphology. Stomach and bowel: Prominent stool and diverticula, without pericolonic inflammation. Appendix: No acute appendicitis. Intraperitoneal space: No significant free fluid. Vasculature: Prominent vascular calcification. Ectasia of the abdominal aorta. Lymph nodes: No pathologically enlarged lymph nodes. Bladder: Lamb catheter in the nondistended bladder. Reproductive: Uterine calcifications. Bones/joints: Osteopenia and degenerative change. Grade 1 anterior listhesis of L5 on S1 and L5 spondylolysis. Soft tissues: Bilateral gluteal muscle atrophy. CT/CT abdomen pelvis con [id number] IMPRESSION: 1. Subcentimeter bilateral renal calculi, including a 5 mm right renal calculus. Additional 4 mm calculus in the dilated left extrarenal pelvis. 2. Bilateral hydronephrosis, right greater than left. 3. Additional findings as described above. Radiation Dose CTDIVOL = (mGy): DLP = 963.58 (mGy-cm)
--- NOTE | 2020-01-29 11:07 | P.PN_ITS ---
Subjective Subjective: Interval history: Reports I am feeling better . Denies pain or discomfort. Breathing is comfortable. No chest pain. Vitals/I&O/Wt Last Vital Signs Temp 97.2 F L 01/29/20 10:53 Pulse 66 01/29/20 06:00 Resp 19 H 01/29/20 06:00 BP 130/71 01/29/20 06:00 Pulse Ox 97 01/29/20 06:00 01/28/20 01/29/20 01/29/20 22:59 06:59 14:59 Intake Total 300 / 2410 1000 / 3410 115 / 115 Output Total 625 / 625 400 / 1025 350 / 350 Balance -325 / 1785 600 / 2385 -235 / -235 Weight last 48 hrs Weight 67.812 kg Weight 72.03 kg Physical Exam Const: COMMON NORMALS: no apparent distress GENERAL APPEARANCE: frail appearing OTHER: Frail-appearing elderly lady. Today appears stronger, more energetic. HENMT: COMMON NORMALS: oropharynx normal Neck/C-Spine: COMMON NORMALS: no JVD Resp: COMMON NORMALS: normal respiratory effort and clear to auscultation bilaterally AUSCULTATION: clear to auscultation bilaterally Cardio: COMMON NORMALS: no JVD, regular rhythm, S1 normal heart sound, S2 normal heart sound and no murmurs RHYTHM: regular rhythm HEART SOUNDS: S1 normal and S2 normal GI: COMMON NORMALS: normal to inspection, nondistended, normoactive bowel sounds, soft to palpation and non-tender PALPATION: Yes soft Extremity: COMMON NORMALS: no joint enlargement and no pedal edema Neuro: COMMON NORMALS: moves all extremities Skin: COMMON NORMALS: no rashes or lesions noted GENERAL SKIN EXAM: no rashes or lesions noted Urinary Catheter Management^: Lamb: Cath Placed During This Visit: yes Reason for Continuing Indwelling Catheter: Accurate Measurement of Urinary Output in Critically Ill Patients Urinary Catheter Date of Insertion: 01/28/20 Urinary Catheter Time of Insertion: 12:41 Data : 01/29/20 04:34 01/29/20 12:04 Micro: Microbiology 01/28/20 14:09 Blood Culture - Preliminary Blood SPECIMEN COLLECTED 01/28/20 12:00 Blood Culture - Preliminary Blood SPECIMEN COLLECTED A&P Assessment and plan (1) Acute kidney injury: Improving with fluid challenge. Appears with significant prerenal component. Holding LAYTON inhibitor. NSAIDs should be discontinued. Hyperkalemia improved. CK normal. Renal ultrasound with incomplete visualization of kidneys, and symmetric bilateral hydronephrosis. R worse than L. Renal stones, L side pelvic stone, no ureteral stone noted. She sees Dr Mcgowan. He will have a look at her images. We do not have images of bladder pre-Lamb catheter. It is not clear whether there may be some bladder outlet issue. Bladder is already decompressed during CT scan. Discussed w her urologist. Only very slightly progressed hydronephrosis compared to 2015 on his review of imaging. Mostly expected to be chronic. As she has been improving clinically, for now hold off on intervention. Hold her blood pressure medications. Maintain mean arterial pressure. Discontinue NSAIDs. Appreciate nephrology input. Status: Acute (2) Acute hyperkalemia: Improved. Status: Acute (3) Hypotension: Resolved. Status: Acute (4) Acute cystitis: Gram-negative rods in urine. Complicated urinary tract infection, with history of very resistant infections. Received Rocephin in ER. I see back in August had E. coli resistant to cephalosporins as well as other antibiotics. Primaxin Follow urine culture. Status: Acute Qualifiers: Hematuria presence: without hematuria Qualified Code(s): N30.00 - Acute cystitis without hematuria (5) Altered mental status: Appears to be somewhat improved. Recently progressive dementia, decline in motivation, functional capacity. Decline in overall nutrition and hydration. She has been significantly less active not participating in activities over the last weeks, less communicative. It appears has had progression of dementia after the of [id number]. Discussed with family overall her prognosis while guarded at this time, long- term he is rather not good given chronic comorbidities with CAD, CKD, among others, as well as recent progression of dementia and decline in functional capacity. They verbalized understanding and agreement. Status: Acute Qualifiers: Altered mental status type: unspecified Qualified Code(s): R41.82 - Altered mental status, unspecified (6) Dementia: Recently progressing. Status: Acute (7) CAD (coronary artery disease): With chronically occluded RCA reported per family. Follows with Dr. Navarro in [place]. Continue aspirin, statin. Now even mildly hypertensive. Will resume lower dose Imdur. Status: Acute (8) Syncope due to orthostatic hypotension: Status: Acute (9) Troponin level elevated: She denies current chest pain. Does have history of coronary disease with chronic occlusion of RCA per family, although with some collaterals. Given she is asymptomatic, without significant changes on EKG, troponin ovation is suspected likely secondary to mismatch and demand supply secondary to acute infection, hypotension and kidney injury. Continue to monitor for symptoms. Complete troponin and EKG trend. Continue her cardiac medications with aspirin, statin, Imdur. Status: Acute Attestations Medical Necessity Statement*: Continue admission for assessment management of complicated urinary tract infection, acute kidney injury. Coding Level of Care Code Acute Lanolin Plant Operator for g Fwd Exam Comprehensive Diagnoses Acute kidney injury N17.9 Acute hyperkalemia E87.5 Hypotension I95.9 Acute cystitis N30.00 Hematuria presence: without hematuria Altered mental status R41.82 Altered mental status type: unspecified Dementia F03.90 CAD (coronary artery disease) I25.10 Syncope due to orthostatic hypotension I95.1 Troponin level elevated R79.89
[2020-01-29 12:35] LABS: Anion Gap 15.6 (5-19); Blood Urea Nitrogen 75 mg/dL (8-23); Calcium 8.8 mg/dL (8.5-10.5); Carbon Dioxide 18 mmol/L (22-29); Chloride 123 mmol/L (98-107); Glucose 104 mg/dL (65-115); Osmolality Calculated 314 mOsm/kg (285-295); Potassium 4.6 mmol/L (3.5-5.1); Sodium 152 mmol/L (136-145)
[2020-01-29] MEDS: citalopram 20 mg Tablet 10 MG PO (16:07)
--- NOTE | 2020-01-29 17:00 | USR_ITS ---
NOTE: Report was unsigned for reason: Order was edited. Original Signature date and time was: 01/29/20 0813 PROCEDURE INFORMATION: Exam: US Retroperitoneal Complete. Exam date and time: 01/29/2020 7:32 AM Age: 84 years old Clinical indication: Abnormal findings; Abnormal lab test; Abnormal kidney function lab tests; Additional info: [place] TECHNIQUE: Imaging protocol: Real-time ultrasound of the retroperitoneum with image documentation. Complete exam. COMPARISON: CT abdomen pelvis wo con [id number] 04/09/2015 12:02 PM FINDINGS: Right kidney: Incomplete visualization of the right kidney with moderate right hydronephrosis and dilatation of the visualized proximal right ureter. CT can be performed for improved characterization, as clinically indicated. Left kidney: Incomplete visualization of the left kidney with mild left hydronephrosis. Aorta: Obscuration of the abdominal aorta by bowel gas. Bladder: Lamb catheter in the nondistended bladder with wall thickening. [facility] US/US renal BI* [id number] IMPRESSION: 1. Incomplete visualization of the kidneys with asymmetric bilateral hydronephrosis. 2. CT can be performed for improved characterization, as clinically indicated.
[2020-01-30 04:00] VITALS: BP 161/89; PULSE 80; RESP 17; TEMP 36.4; O2SAT 94
[2020-01-30 05:41] LABS: Basophils # 0.1 10^3/uL (0.0-0.1); Basophils % 0.8 %; Eosinophils # 0.3 10^3/uL (0.0-0.8); Eosinophils % 3.5 %; Hemoglobin 11.8 g/dL (11.5-15.3); Lymphocytes # 1.2 10^3/uL (0.8-4.8); Lymphocytes % 16.7 %; Mean Corpuscular HGB Conc 30.3 g/dL (30.0-36.0); Mean Corpuscular Hemoglobin 30.1 pg (28.0-34.0); Mean Corpuscular Volume 99.5 fL (81-99); Mean Platelet Volume 12.3 fL (7.4-10.4); Monocytes # 0.5 10^3/uL (0.2-0.9); Monocytes % 6.3 %; Neutrophils # 5.4 10^3/uL (1.8-7.7); Neutrophils % 72.2 %; Nucleated Red Blood Cells % 0 %; Platelet Count 153 10^3/cmm (130-400); Red Blood Count 3.92 10^6/uL (4.1-5.3); Red Cell Distribution Width 14.3 % (12.1-15.1); White Blood Count 7.4 10^3/uL (4.0-10.0)
[2020-01-30 05:57] LABS: Alanine Aminotransferase 14 U/L (0-33); Albumin Level 3.2 g/dL (3.5-5.2); Alkaline Phosphatase 97 IU/L (35-105); Anion Gap 16.8 (5-19); Aspartate Amino Transferase 16 U/L (0-32); Blood Urea Nitrogen 61 mg/dL (8-23); Calcium 9.3 mg/dL (8.5-10.5); Carbon Dioxide 18 mmol/L (22-29); Chloride 124 mmol/L (98-107); Globulin 3.8 g/dL (1.3-4.6); Glucose 104 mg/dL (65-115); Osmolality Calculated 317 mOsm/kg (285-295); Potassium 4.8 mmol/L (3.5-5.1); Sodium 154 mmol/L (136-145); Total Bilirubin 0.5 mg/dL (0.15-1.2)
[2020-01-30 06:56] VITALS: BP 165/96; PULSE 70; RESP 17; TEMP 36.5; O2SAT 98
[2020-01-30] MEDS: citalopram 20 mg Tablet 10 MG PO (08:41)
[2020-01-30] MEDS: aspirin 325 mg Tablet PO (08:41)
[2020-01-30] MEDS: isosorbide mononitrate ER 30 mg Tablet 15 MG PO ×2 (08:41→17:25)
[2020-01-30] MEDS: heparin 5,000 unit/mL INJ 1 mL 5000 UNIT SUBCUT ×2 (08:42→18:01)
[2020-01-30] MEDS: pantoprazole DR 40 mg Tablet PO (08:42)
--- NOTE | 2020-01-30 10:21 | PC.NURSE ---
Pt no longer has an IV, according to hourly shift manager nurse the doctor is aware and is okay with this.
--- NOTE | 2020-01-30 10:38 | P.PN_ITS ---
Subjective Subjective: Interval history: No new issues. Per the RN she has minimal interaction. No discomfort or pain. Lamb in, dark urine Vitals/I&O/Wt Last Vital Signs Temp 97.7 F 01/30/20 06:56 Pulse 70 01/30/20 06:56 Resp 17 01/30/20 06:56 BP 165/96 01/30/20 06:56 Pulse Ox 98 01/30/20 06:56 01/29/20 01/30/20 01/30/20 22:59 06:59 14:59 Intake Total 220 / 455 Output Total 850 / 1200 350 / 1550 Balance -630 / -745 -350 / -1095 Weight last 48 hrs Weight 68.22 kg Weight 67.812 kg Weight 67.812 kg Weight 72.03 kg Physical Exam Const: EXAM LIMITATIONS: altered mental status NUTRITIONAL APPEARANCE: underweight ORIENTATION/CONSCIOUSNESS: Yes confused HENMT: COMMON NORMALS: normocephalic HEAD & SCALP: normocephalic Eye: COMMON NORMALS: PERRL and EOMs intact bilaterally PUPIL: Yes PERRL Neck/C-Spine: COMMON NORMALS: no JVD Lymph: LYMPHATIC: no lymphadenopathy noted and no lymphedema noted Chest: COMMONS NORMALS: inspection of chest normal and palpation of chest normal Resp: COMMON NORMALS: normal respiratory effort and no retractions Cardio: COMMON NORMALS: no JVD, regular rate, regular rhythm, S1 normal heart sound and S2 normal heart sound RATE: regular rate RHYTHM: regular rhythm HEART SOUNDS: S1 normal and S2 normal GI: COMMON NORMALS: normal to inspection, nondistended, normoactive bowel sounds Neuro: PEDRO COMA SCALE: other (very confused, unable to converse ) COMM ON NORMALS: no focal motor deficits Urinary Catheter Management^: Lamb: Cath Placed During This Visit: yes Reason for Continuing Indwelling Catheter: Assist Healing of Perineal & Sacral Wounds- Incontinent Patients Urinary Catheter Date of Insertion: 01/28/20 Urinary Catheter Time of Insertion: 12:41 Data : 01/30/20 05:34 01/30/20 05:34 Micro: Microbiology 01/28/20 14:09 Blood Culture - Preliminary Blood NEGATIVE TO DATE 01/28/20 12:08 Urine Culture - Preliminary Urine,Clean Catch Gram Negative Rods 01/28/20 12:00 Blood Culture - Preliminary Blood NEGATIVE TO DATE A&P Additional A&P Information 1. SHAJI - consistent with severe pre-renal azotemia, characterized by clinical hypovole eoly, high BUN:creatinine ratio. It is possible ATN has occurred given her profound intravascular volume depletion. Furthermore, she has been exposed to both NSAIDs restricting glomerular inflow and ACEi, dumping glomerular pressure further. - Creatinine coming down nicely - renal us with right hydro and mild left hydro; Dr Mcgowan aware of the hydro, chronic finding, for follow up after discharge - avoid the usuals 2. hypernatremia - she is not taking in enough to avoid clinical dehydration and this is worrisome; adequate oral hydration in this setting is essential. She is not a good candidate for feeding tubes. As we correct her infection and matbolic abnormalities encouragement I hope that she is able to take in more - will give D5w 500ml bolus and 75ml/hr, ok for PICC if needed 3. Confusion - likely metabolic encephalopathy from severe volume depletion and UTI; improving to baseline dementia 4. UTI - urine and blood cultures noted, GNRs in the urine; on Imipenem and has received Rocephin - DNR and limited code status - thanks will follow closely - interview and exam performed via telemed with the aid of the bedside RN Yasir Collins MD [facility] [phone] Attestations Medical Necessity Statement*: Eval for SHAJI Coding Level of Care Code Acute Data Services Developer for Arturo Meraz
[2020-01-30 11:30] LABS: Sodium 157 mmol/L (136-145)
[2020-01-30 11:54] VITALS: BP 144/93; PULSE 78; RESP 16; TEMP 36.7; O2SAT 95
[2020-01-30] MEDS: dextrose 5 % 500 ML IV (12:44)
[2020-01-30] MEDS: dextrose 5% 1,000 ML 75 ML IV (12:47)
[2020-01-30 14:57] VITALS: BP 128/86; PULSE 78; RESP 18; TEMP 36.5; O2SAT 94
[2020-01-30 20:00] VITALS: BP 136/84; PULSE 72; RESP 20; TEMP 36.4; O2SAT 96
--- NOTE | 2020-01-30 20:56 | P.PN_ITS ---
Subjective Subjective: Interval history: Denies pain. Says she is hungry. Vitals/I&O/Wt Last Vital Signs Temp 97.7 F 01/30/20 14:57 Pulse 78 01/30/20 14:57 Resp 18 01/30/20 14:57 BP 128/86 01/30/20 14:57 Pulse Ox 94 01/30/20 14:57 01/30/20 01/30/20 01/30/20 06:59 14:59 22:59 Intake Total 100 / 100 140 / 240 Output Total 350 / 1550 1000 / 1000 Balance -350 / -1095 100 / 100 -860 / -760 Weight last 48 hrs Weight 68.22 kg Weight 67.812 kg Weight 67.812 kg Physical Exam Const: COMMON NORMALS: no apparent distress GENERAL APPEARANCE: frail appearing OTHER: Frail-appearing elderly lady. HENMT: COMMON NORMALS: oropharynx normal Neck/C-Spine: COMMON NORMALS: no JVD Resp: COMMON NORMALS: normal respiratory effort and clear to auscultation bilaterally AUSCULTATION: clear to auscultation bilaterally Cardio: COMMON NORMALS: no JVD, regular rhythm, S1 normal heart sound, S2 normal heart sound and no murmurs RHYTHM: regular rhythm HEART SOUNDS: S1 normal and S2 normal GI: COMMON NORMALS: normal to inspection, nondistended, normoactive bowel sounds, soft to palpation and non-tender PALPATION: Yes soft Extremity: COMMON NORMALS: no joint enlargement and no pedal edema Neuro: COMMON NORMALS: moves all extremities Skin: COMMON NORMALS: no rashes or lesions noted GENERAL SKIN EXAM: no rashes or lesions noted Urinary Catheter Management^: Lamb: Cath Placed During This Visit: yes Reason for Continuing Indwelling Catheter: Assist Healing of Perineal & Sacral Wounds- Incontinent Patients Urinary Catheter Date of Insertion: 01/28/20 Urinary Catheter Time of Insertion: 12:41 Data : 01/30/20 05:34 01/30/20 10:58 Micro: Microbiology 01/28/20 12:08 Urine Culture - Preliminary Urine,Clean Catch Proteus mirabilis A&P Assessment and plan (1) Hypernatremia: Sodium up to 157. Noted poor oral intake. Continue D5W. Recheck sodium. Encourage oral nutrition and hydration. As discussed with family despite improvement at current episode of care, overall prognosis is likely not good due to recently progressive dementia, functional decline, and decrease in interaction. Status: Acute (2) Acute kidney injury: Gradual improvement. Appears with significant prerenal component. Holding LAYTON inhibitor. NSAIDs should be discontinued. Hyperkalemia improved. CK normal. Renal ultrasound with incomplete visualization of kidneys, and symmetric bilateral hydronephrosis. R worse than L. Renal stones, L side pelvic stone, no ureteral stone noted. She sees Dr Mcgowan. We do not have images of bladder pre-Lamb catheter. It is not clear whether there may be some bladder outlet issue. Bladder is already decompressed during CT scan. Discussed w her urologist. Only very slightly progressed hydronephrosis compared to 2015 on his review of imaging. Mostly expected to be chronic. As she has been improving clinically, for now hold off on intervention. Hold her blood pressure medications. Maintain mean arterial pressure. Discontinue NSAIDs. Appreciate nephrology input. Status: Acute (3) Acute hyperkalemia: Improved. Status: Acute (4) Hypotension: Resolved. Status: Acute (5) Acute cystitis: Transition to Omnicef. Gram-negative rods in urine. Complicated urinary tract infection, with history of very resistant infections. Received Rocephin in ER. I see back in August had E. coli resistant to cephalosporins as well as other antibiotics. Follow urine culture. Status: Acute Qualifiers: Hematuria presence: without hematuria Qualified Code(s): N30.00 - Acute cystitis without hematuria (6) Altered mental status: Appears to be somewhat improved. Recently progressive dementia, decline in motivation, functional capacity. Decline in overall nutrition and hydration. She has been significantly less active not participating in activities over the last weeks, less communicative. It appears has had progression of dementia after the of [id number]. Discussed with family overall her prognosis while guarded at this time, long- term he is rather not good given chronic comorbidities with CAD, CKD, among o thers, as well as recent progression of dementia and decline in functional capacity. They verbalized understanding and agreement. Status: Acute Qualifiers: Altered mental status type: unspecified Qualified Code(s): R41.82 - Altered mental status, unspecified (7) Dementia: Recently progressing. Status: Acute (8) CAD (coronary artery disease): With chronically occluded RCA reported per family. Follows with Dr. Caridad lara in [place]. Continue aspirin, statin. Now even mildly hypertensive. Will resume lower dose Imdur. Status: Acute (9) Syncope due to orthostatic hypotension: Status: Acute (10) Troponin level elevated: She denies current chest pain. Does have history of coronary disease with chronic occlusion of RCA per family, although with some collaterals. Given she is asymptomatic, without significant changes on EKG, troponin ovation is suspected likely secondary to mismatch and demand supply secondary to acute infection, hypotension and kidney injury. Continue to monitor for symptoms. Complete troponin and EKG trend. Continue her cardiac medications with aspirin, statin, Imdur. Status: Acute Attestations Medical Necessity Statement*: Continue admission for assessment and management of acute hypernatremia, acute kidney injury, complicated UTI. Coding Level of Care Code Acute Environmental Aide for [facility] Kt Diagnoses Hypernatremia E87.0 Acute kidney injury N17.9 Acute hyperkalemia E87.5 Hypotension I95.9 Acute cystitis N30.00 Hematuria presence: without hematuria Altered mental status R41.82 Altered mental status type: unspecified Dementia F03.90 CAD (coronary artery disease) I25.10 Syncope due to orthostatic hypotension I95.1 Troponin level elevated R79.89
[2020-01-30] MEDS: atorvastatin 40 mg Tablet 20 MG PO (21:23)
[2020-01-30] MEDS: cefdinir 300 MG CAPSULE PO (21:24)
[2020-01-30 21:37] LABS: Sodium 151 mmol/L (136-145)
[2020-01-31] VITALS: BP 130/81; PULSE 68; RESP 20; TEMP 36.4; O2SAT 93
[2020-01-31] MEDS: heparin 5,000 unit/mL INJ 1 mL 5000 UNIT SUBCUT ×2 (00:41→08:20)
[2020-01-31 04:00] VITALS: BP 119/79; PULSE 67; RESP 20; TEMP 36.5; O2SAT 92
--- NOTE | 2020-01-31 04:41 | PC.NURSE ---
IVF pt's sodium level dropped from 157 at 1058 to 151 at 2109. Physician notified at 2242 of the 6 meq decrease. This nurse stopped the IVF infusion per nursing note orders. Will continue to monitor labs.
[2020-01-31 05:52] LABS: Basophils % 0.2 %; Eosinophils # 0.3 10^3/uL (0.0-0.8); Eosinophils % 3.4 %; Hematocrit 37.6 % (37.0-47.0); Hemoglobin 11.5 g/dL (11.5-15.3); Lymphocytes # 1.8 10^3/uL (0.8-4.8); Lymphocytes % 21.9 %; Mean Corpuscular HGB Conc 30.6 g/dL (30.0-36.0); Mean Corpuscular Hemoglobin 30.5 pg (28.0-34.0); Mean Corpuscular Volume 99.7 fL (81-99); Mean Platelet Volume 12.3 fL (7.4-10.4); Monocytes # 0.6 10^3/uL (0.2-0.9); Monocytes % 7.1 %; Neutrophils # 5.6 10^3/uL (1.8-7.7); Neutrophils % 66.8 %; Nucleated Red Blood Cells % 0 %; Platelet Count 149 10^3/cmm (130-400); Red Blood Count 3.77 10^6/uL (4.1-5.3); Red Cell Distribution Width 14.4 % (12.1-15.1); White Blood Count 8.4 10^3/uL (4.0-10.0)
[2020-01-31 06:08] LABS: Alanine Aminotransferase 11 U/L (0-33); Albumin Level 2.9 g/dL (3.5-5.2); Alkaline Phosphatase 95 IU/L (35-105); Anion Gap 12.5 (5-19); Aspartate Amino Transferase 15 U/L (0-32); Blood Urea Nitrogen 45 mg/dL (8-23); Carbon Dioxide 18 mmol/L (22-29); Chloride 121 mmol/L (98-107); Globulin 3.5 g/dL (1.3-4.6); Glucose 110 mg/dL (65-115); Osmolality Calculated 303 mOsm/kg (285-295); Potassium 4.5 mmol/L (3.5-5.1); Sodium 147 mmol/L (136-145); Total Bilirubin 0.6 mg/dL (0.15-1.2); Total Protein 6.4 g/dL (6.6-8.7)
[2020-01-31 07:47] VITALS: BP 153/88; PULSE 67; RESP 18; TEMP 36.8; O2SAT 92
[2020-01-31] MEDS: aspirin 325 mg Tablet PO (08:19)
[2020-01-31] MEDS: isosorbide mononitrate ER 30 mg Tablet 15 MG PO ×2 (08:19→17:27)
[2020-01-31] MEDS: citalopram 20 mg Tablet 10 MG PO (08:20)
[2020-01-31] MEDS: pantoprazole DR 40 mg Tablet PO (08:20)
--- NOTE | 2020-01-31 10:05 | PC.SOCIAL ---
IMM Page 2 of IMM explained to patient. Initialed, dated, and timed and placed in chart. Copy provided to patient.
[2020-01-31 11:15] VITALS: BP 109/71; PULSE 78; RESP 18; TEMP 36.9; O2SAT 96
--- NOTE | 2020-01-31 13:55 | PM.PN ---
Subjective Subjective: Interval history: per RN, Blanca is drinking more water today Vitals/I&O/Wt Last Vital Signs Temp 98.5 F 01/31/20 11:15 Pulse 78 01/31/20 11:15 Resp 18 01/31/20 11:15 BP 109/71 01/31/20 11:15 Pulse Ox 96 01/31/20 11:15 01/30/20 01/31/20 01/31/20 22:59 06:59 14:59 Intake Total 140 / 240 810 / 1050 800 / 800 Output Total 1000 / 1000 405 / 1405 Balance -860 / -760 405 / -355 800 / 800 Weight last 48 hrs Weight 65.091 kg Weight 65.045 kg Weight 68.22 kg Physical Exam Narrative: EXAM NARRATIVE: arousable but not answering questions Resp: COMMON NORMALS: clear to auscultation bilaterally AUSCULTATION: clear to auscultation bilaterally Cardio: COMMON NORMALS: regular rate and regular rhythm JUGULAR VENOUS DISTENTION: no JVD RATE: regular rate RHYTHM: regular rhythm Extremity: COMMON NORMALS: no clubbing, cyanosis or edema Urinary Catheter Management^: Lamb: Cath Placed During This Visit: yes Reason for Continuing Indwelling Catheter: Acute Urinary Retention or Obstruction Urinary Catheter Date of Insertion: 01/28/20 Urinary Catheter Time of Insertion: 12:41 Data : 01/31/20 05:43 01/31/20 05:43 Micro: Microbiology 01/28/20 12:08 Urine Culture - Preliminary Urine,Clean Catch Proteus mirabilis A&P Additional A&P Information 1. Hypernatremia improved 2. Acute kidney injury improved 3. UTI Recommendation - She needs to take more fluids orally. Needs guided fluid intake to ensure maintenance of hydration. 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
--- NOTE | 2020-01-31 14:31 | PM.DCS ---
Discharge Providers Date of Admission: 01/28/20 13:36 Date of Discharge: January 31, 2020 Attending Provider at Admission: Serafin Rapp Attending Provider at Discharge: Serafin Rapp Primary Care Provider: South Arizmendi MD Diagnoses at Discharge Discharge Diagnosis (1) Hypernatremia: Status: Acute Problem details: With poor oral intake, per report recently more withdrawn, with advancement of her dementia. (2) Acute kidney injury: Status: Acute Problem details: Dehydration, hypovolemia, hypotension. Encourage oral hydration, avoid hypotension, reconcile medications which may affect blood pressure. Avoid NSAIDs. (3) Acute hyperkalemia: Status: Acute (4) Hypotension: Status: Acute (5) Acute cystitis: Status: Acute Problem details: Proteus mirabilis Qualifiers: Hematuria presence: without hematuria Qualified Code(s): N30.00 - Acute cystitis without hematuria (6) Altered mental status: Status: Acute Qualifiers: Altered mental status type: unspecified Qualified Code(s): R41.82 - Altered mental status, unspecified (7) Dementia: Status: Acute (8) CAD (coronary artery disease): Status: Acute Problem details: Follow-up with cardiology (9) Syncope due to orthostatic hypotension: Status: Acute (10) Troponin level elevated: Status: Acute Reason for Visit Reason for Visit: Reason For Visit: SHAJI,HYPERKALEMIA Hospital Course Hospital Course: 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 84-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, recently with more advancing dementia, more withdrawn, with poor oral intake of nutrition and hydration, with history of coronary disease, HTN, thoracic aortic aneurysm and other conditions, was admitted and treated to the hospital for severe sepsis, initially appeared like may be septic shock as well, with hypotension presentation, although after thorough hydration did not require pressors, severe acute kidney injury with hyperkalemia with EKG changes, with history of complicated urinary tract infections with resistant organisms received treatment with IV hydration fluid boluses, treatment for severe hyperkalemia with EKG changes with improvement in level. Her renal function gradually improved. Imdur, lisinopril, nifedipine, diclofenac were all held. Long-term avoid NSAIDs. Lisinopril for now is discontinued until renal function stabilizes, then depending on blood pressures consider restarting. Would hold off on therapy as this may contribute to profound hypotension. For now Imdur is resumed at lower dose at 15 mg. With noted poor oral intake in the hospital, completing 10-25% of her meals with encouragement with resultant hypernatremia and dehydration again. This improved with infusion of D5W. Try to avoid dehydration, would measure intake, and aim for possibly a quart a day intake. Add protein shakes as tolerating. Long-term unfortunately appears prognosis may not be good due to progression of dementia, or being more withdrawn, declining functional capacity, and decline in oral nutrition and hydration. She was treated with Primaxin due to history of ESBL infection. Her urine eventually grew Proteus mirabilis non-esbl, sensitive to cephalosporins. Hydronephrosis was noted on CT on presentation, although images obtained with decompressed bladder with Lamb catheter already placed. On review of images by nephrology comparing to her prior, it appears hydronephrosis is perhaps only minimally worse on the left side compared to 2015. Her renal function, sepsis were improving already, and no invasive intervention was recommended. Per discussion, for now Lamb catheter will be maintained due to chronic hydronephrosis, if she is able to tolerate, with monthly changes, and with follow-up with urology in office around the time of the next change in about a month. Physical Exam Const: COMMON NORMALS: no apparent distress GENERAL APPEARANCE: frail appearing OTHER: Frail-appearing elderly lady. Awake and alert. Not very conversant, answers few basic questions. Not oriented to place or date. HENMT: COMMON NORMALS: oropharynx normal Neck/C-Spine: COMMON NORMALS: no JVD Resp: COMMON NORMALS: normal respiratory effort and clear to auscultation bilaterally AUSCULTATION: clear to auscultation bilaterally Cardio: COMMON NORMALS: no JVD, regular rhythm, S1 normal heart sound, S2 normal heart sound and no murmurs RHYTHM: regular rhythm HEART SOUNDS: S1 normal and S2 normal GI: COMMON NORMALS: normal to inspection, nondistended, normoactive bowel sounds, soft to palpation and non-tender PALPATION: Yes soft Extremity: COMMON NORMALS: no joint enlargement and no pedal edema Neuro: COMMON NORMALS: moves all extremities Skin: COMMON NORMALS: no rashes or lesions noted GENERAL SKIN EXAM: no rashes or lesions noted Urinary Catheter Management^: Lamb: Cath Placed During This Visit: yes Reason for Continuing Indwelling Catheter: Acute Urinary Retention or Obstruction Urinary Catheter Date of Insertion: 01/28/20 Urinary Catheter Time of Insertion: 12:41 Discharge Data Data Completed and Pending: Completed Studies During Hospitalization Category Date Time Status CT abdomen pelvis wo con 54495 Rout ine Cat Scan 01/29/20 10:[address] head wo con* 7 [id number] Urgent Cat Scan 01/28/20 10:45 Completed XR chest 1V jer ble [id number] Urgent Exams 01/28/20 10:45 Completed US renal BI* [id number] Routine Ultrasound 01/29/20 17:00 Completed Pending at discharge Category Date Time Status Blood Culture Sta t Lab 01/28/20 14:09 Results Immunochemical Fe antoni OCB Routine Lab 01/29/20 08:07 Uncollected Urine Culture Sta t Lab 01/28/20 12:08 Results Labs from last 24 hours 01/31/20 01/31/20 01/30/20 05:43 05:43 21:09 WBC 8.4 RBC 3.77 L Hgb 11.5 Hct 37.6 MCV 99.7 H MCH 30.5 MCHC 30.6 RDW 14.4 Plt Count 149 MPV 12.3 H Neut % (Auto) 66.8 Lymph % (Auto) 21.9 [place] % (Auto) 7.1 Eos % (Auto) 3.4 Baso % (Auto) 0.2 Neut # (Auto) 5.6 Lymph # (Auto) 1.8 [place] # (Auto) 0.6 Eos # (Auto) 0.3 Baso # (Auto) 0.0 Nucleated RBC % (a uto) 0 Nucleated RBCs # 0.0 Sodium 147 H 151 H Potassium 4.5 Chloride 121 H Carbon Dioxide 18 L Anion Gap 12.5 BUN 45 H Creatinine 1.4 H Glucose 110 Calculated Osmolal ity 303 H Calcium 9.0 Total Bilirubin 0.6 AST 15 ALT 11 Alkaline Phosphata se 95 Total Protein 6.4 L Albumin 2.9 L Globulin 3.5 Vitals: Last Vital Signs Temp 98.5 F 01/31/20 11:15 Pulse 78 01/31/20 11:15 Resp 18 01/31/20 11:15 BP 109/71 01/31/20 11:15 Pulse Ox 96 01/31/20 11:15 Discharge Plan Discharge Patient Disposition: Xfer SNF Condition: Stable Prescriptions: New cefdinir 300 mg Capsule 300 mg PO Q24H Qty: 6 RF: 0 Tylenol 325 mg tablet 325 mg PO Q4H PRN (Reason: pain) Qty: 30 RF: 0 Continued methenamine hippurate 1 gram tablet 1 gm PO BID RF: 0 donepezil 5 mg tablet 5 mg PO BID RF: 0 aspirin 81 mg tablet,delayed release (DR/EC) 81 mg PO DAILY RF: 0 omeprazole 20 mg capsule,delayed release(DR/EC) 20 mg PO QAM RF: 0 misoprostol 200 mcg tablet 200 mcg PO BID RF: 0 simvastatin 40 mg tablet 40 mg PO BEDTIME RF: 0 citalopram 20 mg tablet 20 mg PO DAILY Qty: 60 RF: 0 Thermotabs 287-180-15 mg Tablet 1 tab PO TID RF: 0 Changed isosorbide mononitrate 30 mg tablet extended release 24 hr 15 mg PO BID Qty: 60 RF: 0 Discontinued nifedipine 30 mg tablet extended release 30 mg PO DAILY RF: 0 diclofenac sodium 75 mg tablet,delayed release (DR/EC) 75 mg PO BID RF: 0 lisinopril 10 mg tablet 10 mg PO BEDTIME RF: 0 nitrofurantoin monohyd/m-cryst [Macrobid] 100 mg capsule 100 mg PO DAILY RF: 0 Discharge Orders: Discharge Order (Routine); Ordered 01/31/20 Ordered By: Serafin Rapp 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 Encourage drinking about a quart a day. Add protein shakes with meals. Please avoid hypotension. Measure blood pressure 3 times a day, if blood pressure is soft, 110/70 or lower, hold Imdur. For now Imdur dose is decreased to 50 mg due to variable blood pressures. Lisinopril for now is discontinued as is nifedipine. Please avoid NSAIDs. Due to chronic hydronephrosis for now maintain Lamb catheter if she will tolerate, changing it monthly, and following up with urology around the time of the next change. 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
[2020-01-31 14:37] VITALS: BP 109/71; PULSE 78; RESP 18; TEMP 36.9; O2SAT 96
[2020-01-31 15:32] VITALS: BP 129/82; PULSE 73; RESP 18; TEMP 36.6; O2SAT 94
== END 2020-01-31 17:50 | disposition skilled nursing facility (03) | DRG 682 ==
LOC: ER 11:44 → ICU 14:12 → MEDSURG 01-29 12:44
PROVIDERS: Internal Medicine Nephrology; Admitting Provider Internal Medicine; Emergency Provider Emergency Medicine; Family Provider Family Medicine; PCP Family Medicine; Visit Provider Internal Medicine
DX: N17.9 Acute kidney failure, unspecified (principal); G93.41 Metabolic encephalopathy; N30.00 Acute cystitis without hematuria; E87.5 Hyperkalemia; I25.10 Atherosclerotic heart disease of native coronary artery without angina pectoris; N18.9 Chronic kidney disease, unspecified; I12.9 Hypertensive chronic kidney disease with stage 1 through stage 4 chronic kidney disease, or unspecified chronic kidney disease; Z87.440 Personal history of urinary (tract) infections; F03.90 Unspecified dementia, unspecified severity, without behavioral disturbance, psychotic disturbance, mood disturbance, and anxiety; I95.9 Hypotension, unspecified; E86.0 Dehydration; Z66 Do not resuscitate; H54.40 Blindness, one eye, unspecified eye; K21.9 Gastro-esophageal reflux disease without esophagitis; E78.5 Hyperlipidemia, unspecified; I71.2 Thoracic aortic aneurysm, without rupture; E86.1 Hypovolemia; Z79.82 Long term (current) use of aspirin; N13.30 Unspecified hydronephrosis; N20.0 Calculus of kidney
CPT/HCPCS: 12345; 36415; 51702; 70450; 71045; 74176; 76770; 76857; 80048; 80053; 81001; 82550; 82607; 82728; 82746; 83540; 83550; 83605; 83735; 84295; 84300; 84443; 84484; 84540; 85025; 87040; 87077; 87086; 87186; 93005; 96372; 96375; 99283; J0610; J0696; J0743; J1644; J1815; J7030; J7050; Q3014